=== PATIENT | female | born 1955 | race Caucasian/White ===

== ENCOUNTER 2023-12-22 07:03 | Inpatient (IN) | payer BC ==
[2023-12-17 16:06] LABS: BASOPHILS % (AUTO) 0.8 % (0-1); EOSINOPHILS # (AUTO) 0.2 X10'3 (0-0.9); LYMPHOCYTES # (AUTO) 1.3 X10'3 (1.1-4.8); LYMPHOCYTES % (AUTO) 22.1 % (21-51); MEAN CORPUSCULAR HGB CONC 32.8 g/dL (33.0-36.5); MEAN CORPUSCULAR VOLUME 94.3 FL (78-98); MEAN PLATELET VOLUME 7.6 FL (7.4-10.4); MONOCYTES # (AUTO) 0.7 X10'3 (0-0.9); MONOCYTES % (AUTO) 11.1 % (2-12); NEUTROPHILS # (AUTO) 3.7 X10'3 (1.8-7.7); PRE OP HEMATOCRIT 41.5 % (35.0-45.0); PRE OP HEMOGLOBIN 13.6 g/dL (12.0-16.0); PRE OP PLATELET COUNT 258 X10'3 (140-440); RED CELL DISTRIBUTION WIDTH 14.3 % (11.5-14.5)
[2023-12-17 16:16] LABS: BILIRUBIN,URINE NEGATIVE (Neg); CLARITY,URINE CLOUDY (Clear); COLOR,URINE STRAW (Yellow); GLUCOSE, URINE NEGATIVE (Neg); KETONES,URINE TRACE mg/dl (Neg); LEUKOCYTE ESTERASE ,URINE NEGATIVE (Neg); NITRITES, URINE NEGATIVE (Neg); OCCULT BLOOD,URINE NEGATIVE (Neg); PH,URINE 7.5 (4.8-8.0); PROTEIN,URINE NEGATIVE (Neg); UROBILINOGEN,URINE 0.2 E.U/dL (0.2-1.0)
[2023-12-17 16:20] LABS: PRE OP PROTIME 10.7 SECONDS (9.0-12.0)
[2023-12-17 16:23] LABS: UA COLLECTION TYPE CLN CATCH MIDSTREAM
[2023-12-17 16:24] LABS: SQUAMOUS EPITHELIAL CELL,UR MODERATE /LPF (FEW)
[2023-12-17 16:25] LABS: AMORPHOUS PHOSPHATES 4+; BACTERIA,URINE FEW /HPF (Neg); RBC,URINE 0-2 /HPF (0-2); WBC,URINE 0-4 /HPF (0-4)
[2023-12-17 16:31] LABS: ALBUMIN 3.6 G/DL (3.4-5.0); ALBUMIN/GLOBULIN RATIO 0.9 (1.1-1.5); ALKALINE PHOSPHATASE 58 IU/L (46-116); BLOOD UREA NITROGEN 30 MG/DL (7-18); BUN/CREATININE RATIO 26.8 (10.0-20.0); CALCIUM 9.6 MG/DL (8.5-10.1); CHLORIDE 107 MMOL/L (99-107); CREATININE 1.12 MG/DL (0.40-0.90); PRE OP ALT 21 U/L (30-65); PRE OP ANION GAP 7 (8-16); PRE OP AST 14 U/L (10-37); PRE OP BILIRUB, TOTAL 0.3 MG/DL (0.0-1.0); PRE OP GLUCOSE 95 MG/DL (70-104); PRE OP POTASSIUM 4.8 MMOL/L (3.4-5.1); PRE OP SODIUM 142 MMOL/L (135-145); TOTAL CARBON DIOXIDE 27.7 MMOL/L (24-32); TOTAL PROTEIN 7.7 G/DL (6.4-8.2); eGFR 49 ML/MIN
[2023-12-22] VITALS (42 sets, daily range): BP systolic 93–170; BP diastolic 44–98; PULSE 64–88; RESP 11–21; TEMP 97.8–98.7; O2SAT 93–100
[~2023-12-22] VITALS: Ht 165.1 cm; Wt 105.4 kg
[~2023-12-22 07:03] MED LIST: ALBU90AE PO; AREDS; BACL10TA2 PO; FLAX SEED; FLUT1BLS9 PO; GLUCOSAMINE; LISI10TA27 PO; MAGNESIUM; NAPR220C62 PO; THEO300T10 PO; VITAMIN C; VITAMIN D
[2023-12-22] MEDS ORDERED: bacitracin 15gm ointment TP ONE (07:30)
[2023-12-22] MEDS ORDERED: BUPIVAcaine 2.5mg/ml inj 50ml vial (contains preservative) ONE (07:30)
[2023-12-22] MEDS: famotidine 20mg tablet PO ONE (07:55)
[2023-12-22] MEDS: cefazolin 2gm/D5W 100mL 100 ML IV ONE (07:55)
[2023-12-22] MEDS: ringers solution, lacted 1,000 ML IV SCH ×3 (07:55→19:45)
[2023-12-22] MEDS ORDERED: sevoflurane 250ml liquid IH ONE (08:47)
[2023-12-22] MEDS ORDERED: fentaNYL/PF 50MCG/1 ML 2ML syringe ONE ×2 (08:54→10:08)
[2023-12-22] MEDS ORDERED: MIDAZolam 1 MG/ML 5ML VIAL ONE (08:55)
[2023-12-22] MEDS ORDERED: propofol inj 20 ML IV ONE ×2 (09:36→11:41)
[2023-12-22] MEDS ORDERED: BUPIVAcaine/PF 7.5mg/ml (0.75%) 10ml vial ONE (09:36)
[2023-12-22] MEDS ORDERED: dexamethasone sod phosphate 4mg/ml inj. ONE (09:37)
[2023-12-22] MEDS ORDERED: LIDOcaine 1% w/EPI 1:100,000 inj. MDV 50 ML VIAL ONE (10:05)
[2023-12-22] MEDS: LIDOcaine 1% W/epiNEPHrine 1:100,000 20ml vial IJ ONE (10:30)
[2023-12-22] MEDS: BUPIVAcaine 2.5mg/ml inj 50ml vial (contains preservative) SQ ONE (10:38)
[2023-12-22] MEDS: bacitracin 15gm ointment TP ONE (10:39)
[2023-12-22] MEDS ORDERED: ROPIVAcaine 0.2% (10 MG/5 ML) BOLUS INJECTION POPLITEAL PRN (10:40)
[2023-12-22] MEDS ORDERED: meperidine/PF 25mg/ml syringe IV PRN (10:40)
[2023-12-22] MEDS ORDERED: ondansetron/PF 4mg/2ml inj IV PRN ×2 (10:40→19:35)
[2023-12-22] MEDS ORDERED: proCHLORperazine 10 MG/2 ml inj IV PRN (10:40)
[2023-12-22] MEDS ORDERED: enalaprilat dihydrate 2.5mg/2ml vial IV PRN (10:40)
[2023-12-22] MEDS ORDERED: labetalol 20mg/4ml (5mg/ml) syringe IV PRN (10:40)
[2023-12-22] MEDS ORDERED: ePHEDrine 50MG/ML INJ. ONE (11:41)
[2023-12-22] MEDS: VANCOMYCIN 1,500MG in normal saline IV soln 300 ML IV ONE (14:00)
[2023-12-22] MEDS ORDERED: ondansetron/PF 4mg/2ml inj ONE (15:27)
[2023-12-22] MEDS ORDERED: ceFAZolin 1000mg inj ONE (15:35)
[2023-12-22] MEDS ORDERED: acetaminophen 1,000mg/100ml IV 100 ML IV ONE (15:36)
[2023-12-22] MEDS: ROPIVAcaine 0.2%/PF PUMP/bolus 545 ML POPLITEAL SCH (16:56)
[2023-12-22] MEDS: meperidine/PF 25mg/ml syringe IV PRN ×2 (17:05→17:57)
[2023-12-22] MEDS: ketorolac trometh. 30mg/ml inj. IV ONE (17:56)
[2023-12-22] MEDS: mag hydrox/Alum hydrox/simeth 30ml oral suspension PO ONE (18:43)
[2023-12-22] MEDS: nitroGLYCERIN 0.4mg SUBLingual tab SL PRN (19:02)
[2023-12-22] MEDS ORDERED: mag hydrox/Alum hydrox/simeth 30ml oral suspension PO PRN (19:35)
[2023-12-22] MEDS ORDERED: magnesium 4gm in 100ml NS 100 ML IV PRN (19:35)
[2023-12-22] MEDS ORDERED: normal saline 1000ml 1,000 ML IV SCH (19:35)
[2023-12-22] MEDS ORDERED: potassium Cl 20 mEq SR tablet PO PRN ×2 (19:35)
[2023-12-22] MEDS ORDERED: potassium Cl 40MEQ/1/2NS 520ml 520 ML IV PRN (19:35)
[2023-12-22] MEDS ORDERED: magnesium Cl slow-release 64mg tablet PO PRN (19:35)
[2023-12-22] MEDS ORDERED: acetaminophen 325mg tablet PO PRN (19:35)
[2023-12-22] MEDS ORDERED: nitroGLYCERIN 0.1mg/hour patch TD SCH (19:35)
[2023-12-22] MEDS ORDERED: pantoprazole 40mg Tablet.DR PO SCH (19:35)
[2023-12-22] MEDS: docusate sod 100mg capsule PO SCH (20:00)
[2023-12-22] MEDS: [UNRECOGNIZED DRUG - OTHER] PO SCH (20:00)
[2023-12-22] MEDS ORDERED: albuterol 2.5 MG/3 ML nebule NEB PRN (20:00)
[2023-12-22] MEDS: pantoprazole 40mg Tablet.DR PO SCH (20:12)
[2023-12-22] MEDS: metoprolol tartrate 25mg tablet PO SCH (20:13)
[2023-12-22] MEDS: aspirin 81mg tab.chew PO ONE (20:13)
[2023-12-22] MEDS: nitroGLYCERIN 0.1mg/hour patch TD SCH (20:13)
[2023-12-22] MEDS: budesonide 0.5mg/2ml UD nebule IH SCH (22:12)
[2023-12-22] MEDS: albuterol 2.5 MG/3 ML nebule NEB SCH (22:12)
[2023-12-22] MEDS: heparin, porcine 5000 units/ml vial SQ SCH (23:07)
[2023-12-22] MEDS: ceFAZolin/D5W- 1GM premix 50 ML IV SCH (23:09)
[2023-12-23] VITALS (8 sets, daily range): BP systolic 90–119; BP diastolic 46–60; PULSE 65–89; RESP 15–20; TEMP 97.3–99.9; O2SAT 92–99
[2023-12-23] MEDS ORDERED: lisinopril 10 MG tablet PO SCH (08:00)
[2023-12-23 08:08] LABS: BASOPHILS % (AUTO) 0.2 % (0-1); EOSINOPHILS % (AUTO) 0 % (0-6); HEMATOCRIT 31.6 % (35.0-45.0); HEMOGLOBIN 10.5 g/dl (12.0-16.0); LYMPHOCYTES # (AUTO) 0.9 X10'3 (1.1-4.8); LYMPHOCYTES % (AUTO) 11.8 % (21-51); MEAN CORPUSCULAR HEMOGLOBIN 31.3 PG (27.0-31.0); MEAN CORPUSCULAR HGB CONC 33.1 g/dL (33.0-36.5); MEAN CORPUSCULAR VOLUME 94.4 FL (78-98); MEAN PLATELET VOLUME 7.3 FL (7.4-10.4); MONOCYTES % (AUTO) 13.6 % (2-12); NEUTROPHILS # (AUTO) 5.6 X10'3 (1.8-7.7); NEUTROPHILS % (AUTO) 74.4 % (42-75); PLATELET COUNT 205 X10'3 (140-440); RED BLOOD COUNT 3.35 X10'6 (4.20-5.60); WHITE BLOOD COUNT 7.5 X10'3 (4.5-11.0)
[2023-12-23 08:31] LABS: ALBUMIN 2.5 G/DL (3.4-5.0); ANION GAP 1 (8-16); BLOOD UREA NITROGEN 31 MG/DL (7-18); BUN/CREATININE RATIO 25.6 (10.0-20.0); CALCIUM 7.8 MG/DL (8.5-10.1); CHLORIDE 108 MMOL/L (99-107); CREATINE KINASE 397 U/L (26-192); CREATININE 1.21 MG/DL (0.40-0.90); GLUCOSE 113 MG/DL (70-104); POTASSIUM 4.7 MMOL/L (3.5-5.1); SODIUM 138 MMOL/L (135-145); TOTAL CARBON DIOXIDE 28.9 MMOL/L (24-32); eCRCL 41 ML/MIN; eGFR 45 ML/MIN
[2023-12-23] MEDS: ringers solution, lacted 1,000 ML IV ONE ×2 (08:44→15:34)
[2023-12-23 09:09] LABS: D-DIMER 3.65 MG/L FEU (0-0.50)
[2023-12-23 09:12] LABS: LIPASE 37 U/L (16-77)
[2023-12-23] MEDS: albumin (Human) 5% 250ml 250 ML IV ONE ×2 (11:53→13:12)
[2023-12-23] MEDS ORDERED: ketorolac tromethamine 15mg/ml inj. IV SCH (14:00)
[2023-12-23] MEDS: LidoCAINE 2% Topical Jelly 11mL syringe TOP ONE (15:00)
[2023-12-23] MEDS ORDERED: DOPamine 400mg/D5W 250ml 250 ML IV SCH ×2 (15:00→15:17)
[2023-12-23 16:28] LABS: THYROID STIMULATING HORMONE 0.69 ulU/ml (0.34-4.50)
[2023-12-23] MEDS: ketorolac tromethamine 15mg/ml inj. IV PRN (17:30)
[2023-12-23] MEDS: ceFAZolin/D5W- 1GM premix 50 ML IV ONE (17:41)
[2023-12-23] MEDS: baclofen 10mg tablet PO PRN (20:56)
[2023-12-23] MEDS: HYDROmorphone inj. 0.5 MG/0.5 ML DISP.SYRIN IV PRN (22:23)
[2023-12-24] VITALS (10 sets, daily range): BP systolic 122–156; BP diastolic 53–72; PULSE 73–81; RESP 12–20; TEMP 97.5–98.9; O2SAT 93–98
[2023-12-24] MEDS: oxyCODONE/APAP 10/325mg tablet PO PRN (05:54)
[2023-12-25] VITALS (8 sets, daily range): BP systolic 128–152; BP diastolic 58–76; PULSE 71–89; RESP 12–20; TEMP 97.9–98.9; O2SAT 93–98
[2023-12-25] MEDS: normal saline 1000ml 1,000 ML IV ONE (19:12)
[2023-12-26] VITALS (8 sets, daily range): BP systolic 125–162; BP diastolic 53–81; PULSE 77–89; RESP 16–18; TEMP 97.6–98.5; O2SAT 95–99
[2023-12-26 11:46] LABS: BASOPHILS % (AUTO) 0.5 % (0-1); EOSINOPHILS # (AUTO) 0.1 X10'3 (0-0.9); EOSINOPHILS % (AUTO) 1.3 % (0-6); HEMATOCRIT 34.3 % (35.0-45.0); HEMOGLOBIN 11.5 g/dl (12.0-16.0); LYMPHOCYTES # (AUTO) 0.9 X10'3 (1.1-4.8); MEAN CORPUSCULAR HEMOGLOBIN 31.4 PG (27.0-31.0); MEAN CORPUSCULAR HGB CONC 33.6 g/dL (33.0-36.5); MEAN CORPUSCULAR VOLUME 93.4 FL (78-98); MEAN PLATELET VOLUME 7.2 FL (7.4-10.4); MONOCYTES % (AUTO) 14.1 % (2-12); NEUTROPHILS # (AUTO) 4.9 X10'3 (1.8-7.7); NEUTROPHILS % (AUTO) 71.1 % (42-75); PLATELET COUNT 236 X10'3 (140-440); RED BLOOD COUNT 3.68 X10'6 (4.20-5.60); WHITE BLOOD COUNT 6.9 X10'3 (4.5-11.0)
[2023-12-26 12:02] LABS: ALANINE AMINOTRANSFERASE 20 U/L (12-78); ALBUMIN 2.4 G/DL (3.4-5.0); ALBUMIN/GLOBULIN RATIO 0.6 (1.1-1.5); ALKALINE PHOSPHATASE 37 IU/L (46-116); ANION GAP 7 (8-16); ASPARTATE AMINO TRANSFERASE 21 U/L (10-37); BILIRUBIN,TOTAL 0.2 MG/DL (0.1-1.0); BLOOD UREA NITROGEN 20 MG/DL (7-18); BUN/CREATININE RATIO 18.3 (10.0-20.0); CALCIUM 8.7 MG/DL (8.5-10.1); CHLORIDE 106 MMOL/L (99-107); CREATININE 1.09 MG/DL (0.40-0.90); GLUCOSE 140 MG/DL (70-104); MAGNESIUM 1.8 MG/DL (1.5-2.4); PHOSPHORUS 2.6 MG/DL (2.3-4.5); POTASSIUM 4.1 MMOL/L (3.5-5.1); SODIUM 142 MMOL/L (135-145); TOTAL CARBON DIOXIDE 28.6 MMOL/L (24-32); TOTAL PROTEIN 6.1 G/DL (6.4-8.2); eCRCL 46 ML/MIN; eGFR 50 ML/MIN
[2023-12-26] MEDS: amLODIPine 2.5mg tablet PO SCH (12:11)
[2023-12-26 12:14] LABS: OSMOLALITY 294 MOSM/K (280-300)
[2023-12-26 18:21] LABS: CREATINE KINASE 199 U/L (26-192)
[2023-12-26] MEDS: magnesium oxide 400mg tablet PO SCH (20:20)
[2023-12-26] MEDS: magnesium hydroxide 30ml (MOM) UD suspension PO PRN (20:21)
[2023-12-26] MEDS: temazepam 15mg capsule PO PRN (22:17)
[2023-12-27 03:00] VITALS: PULSE 76; RESP 16; O2SAT 95
[2023-12-27 03:04] VITALS: PULSE 81; RESP 16
[2023-12-27] MEDS: magnesium citrate 296ml oral solution PO ONE (03:22)
[2023-12-27 06:00] VITALS: BP 120/55; PULSE 69; RESP 16; TEMP 98.3; O2SAT 99
[2023-12-27 08:17] VITALS: RESP 16; O2SAT 98
[2023-12-27 10:00] VITALS: BP 118/59; PULSE 77; RESP 16; TEMP 98.1; O2SAT 97
[2023-12-27] MEDS ORDERED: AMLO2.5T5 PO (11:49)
== END 2023-12-27 14:00 | disposition home or self-care (01) | DRG 504 ==
LOC: PAS 07:03 → OBSVTOIN 19:47 → ORTHO 4S 19:47 → UNDODISIN 12-23 14:10 → PCU 3S 12-23 16:55 → ORTHO 4S 12-25 07:50
PROVIDERS: ADMIT Podiatrist Foot & Ankle Surgery; ATTEND Family Medicine
PROC: 0SGK07Z Fusion of Right Tarsometatarsal Joint with Autologous Tissue Substitute, Open Approach (ICD-10-PCS; 2023-12-22)
PROC: 0QBM0ZZ Excision of Left Tarsal, Open Approach (ICD-10-PCS; 2023-12-22)
PROC: 0SGP07Z Fusion of Right Toe Phalangeal Joint with Autologous Tissue Substitute, Open Approach (ICD-10-PCS; 2023-12-22)
PROC: 0SGH07Z Fusion of Right Tarsal Joint with Autologous Tissue Substitute, Open Approach (ICD-10-PCS; 2023-12-22)
PROC: 0SGK04Z Fusion of Right Tarsometatarsal Joint with Internal Fixation Device, Open Approach (ICD-10-PCS; 2023-12-22)
PROC: 0SGP04Z Fusion of Right Toe Phalangeal Joint with Internal Fixation Device, Open Approach (ICD-10-PCS; 2023-12-22)
PROC: 3E0T3BZ Introduction of Anesthetic Agent into Peripheral Nerves and Plexi, Percutaneous Approach (ICD-10-PCS; 2023-12-22)
PROC: 3E0T33Z Introduction of Anti-inflammatory into Peripheral Nerves and Plexi, Percutaneous Approach (ICD-10-PCS; 2023-12-22)
PROC: 0SGH04Z Fusion of Right Tarsal Joint with Internal Fixation Device, Open Approach (ICD-10-PCS; principal; 2023-12-22 08:47)
PROC: CB121ZZ Planar Nuclear Medicine Imaging of Lungs and Bronchi using Technetium 99m (Tc-99m) (ICD-10-PCS; 2023-12-26)
DX: M19.071 Primary osteoarthritis, right ankle and foot (principal); I50.32 Chronic diastolic (congestive) heart failure; M21.6X1 Other acquired deformities of right foot; I11.0 Hypertensive heart disease with heart failure; R00.2 Palpitations; I20.9 Angina pectoris, unspecified; I35.0 Nonrheumatic aortic (valve) stenosis; J44.9 Chronic obstructive pulmonary disease, unspecified; E66.9 Obesity, unspecified; Z68.38 Body mass index [BMI] 38.0-38.9, adult; K57.90 Diverticulosis of intestine, part unspecified, without perforation or abscess without bleeding; K21.9 Gastro-esophageal reflux disease without esophagitis; Z88.2 Allergy status to sulfonamides; Z88.5 Allergy status to narcotic agent; Z79.899 Other long term (current) drug therapy
CPT/HCPCS: 36415; 71045; 71046; 73620; 76000; 78582; 80048; 80053; 81001; 82550; 82948; 83605; 83690; 83735; 83880; 83930; 84100; 84443; 84484; 85025; 85379; 85610; 85730; 87081; 93005; 93306; 94640; 94760; 97110; 97161; 97530; 97535; A4615; A4618; A6222; A6253; A6449; A7000; A9539; A9540; C1713; G0378; J0131; J0690; J1100; J1170; J1644; J1885; J2175; J2250; J2405; J2704; J2795; J3010; J3490; J7030; J7120; P9045